=== PATIENT | male | born 1980 | race Caucasian/White ===

== ENCOUNTER 2016-06-25 15:27 | Emergency (ER) | payer MEDICAID ==
[2016-06-25] MEDS ORDERED: ASPIRIN 81 MG CHEW TAB ONE (16:20)
== END 2016-06-25 17:29 | disposition home or self-care (01) ==
LOC: ER 15:27
CPT/HCPCS: 36415; 71010; 80053; 82550; 83735; 84484; 85025; 85379; 85610; 85730; 93005

== ENCOUNTER 2016-06-29 18:02 | Emergency (ER) | payer MEDICAID | END 2016-06-29 22:38 | disposition home or self-care (01) | LOC: ER 18:02 | CPT/HCPCS: 36415; 71010; 80053; 82550; 83735; 84484; 85025; 85379; 85610; 85730; 93005 ==